=== PATIENT | female | born 1955 | race Caucasian/White ===

== ENCOUNTER 2017-11-10 06:29 | Day surgery (SDC) | payer BC ==
[~2017-11-10] VITALS: Ht 160 cm; Wt 81.2 kg
--- NOTE | ~2017-11-10 | OP ---
PATIENT NAME: BETZY SHIELDS MEDICAL RECORD: [id number] :51 LOCATION:D.OPS ADMISSION DATE: SURGEON: PRETTY ORR DPM DATE OF OPERATION: 11/10/2017 PREOPERATIVE DIAGNOSES: 1. Hallux abductovalgus, left foot. 2. Instability, left first metatarsal-cuneiform joint. POSTOPERATIVE DIAGNOSES: 1. Hallux abductovalgus, left foot. 2. Instability, left first metatarsal-cuneiform joint. PROCEDURES: 1. Dewitt bunionectomy, left foot. 2. First metatarsal-cuneiform joint fusion, left foot. ANESTHESIA: General with local infiltrate utilizing lidocaine and Marcaine plain, 18 cc total on the first ray of the left foot. HEMOSTASIS: Left thigh tourniquet at 350 mmHg. PREOPERATIVE DETAILS: PROCEDURE #1: The patient was taken to the OR, placed on the operating table in supine position. This was followed by induction of general anesthesia and infiltration of local anesthetic. The left extremity was then prepped and draped in usual aseptic technique followed by exsanguination of extremity and inflation of tourniquet. A 15-blade was used to create incision over dorsal aspect of the first ray extending to the base of the proximal phalanx of the hallux and after the medial cuneiform. The incision was deepened down through subcutaneous tissue to the first MPJ. An inverted L capsulotomy was performed. The medial capsular flap was reflected and the head of the first metatarsal was delivered. A sagittal saw was used to resect the medial eminence. Attention was then directed to the first interspace where a lateral release was performed. Good clinical reduction of the lateral contractures was verified. PROCEDURE #2: First metatarsal-cuneiform joint fusion. The incision as described in #1 was deepened down to the periosteum and the first metatarsal-cuneiform joint was delivered. A sagittal saw was used to resect the joint. Temporary fixation was placed and a 5-hole plate with one screw going across the fusion site was placed utilizing fluoroscopy to verify good placement. There was excellent rigid internal fixation noted as well as excellent alignment of the first ray. The wound was flushed. The deep tissue as well as the capsule was repaired with 2-0 Vicryl, the subcutaneous tissue with 4-0 Rapide and the skin was closed with 4-0 Rapide in a subcuticular technique followed by Dermabond. Adaptic, 4 x 4 and Conform were used to dress the wound followed by application of a modified Butler compression dressing. Tourniquet was deflated. POSTOPERATIVE DETAILS: The patient tolerated the procedure well and left the OR with vital signs stable and vascular status at preop levels. The patient was transported to recovery per anesthesia in stable condition. TRANSINT:[id number] Voice Confirmation ID: [id number] DOCUMENT ID: [id number] OPERATIVE REPORT [id number] BETZY SHIELDS MCKAY DPM CC: [id number] DICTATION DATE: 11/10/17 1147 ENGINEERING DRAFTER: 11/10/17 12[id number] [place] [address]
[~2017-11-10 06:29] MED LIST: ASPIRIN81 MG PO; BENADRYL25 MG PO; CYTOMEL50 MCG PO; FISH OIL 1,2001 CAP PO; PRILOSEC10 M1 PO; SYNTHROID100 MCG PO; TENORMIN50 MG PO; VITAMIN B COMPL1 TAB PO; VITAMIN D31000 UNIT PO
[2017-11-10 07:51] LABS: HEMATOCRIT 38.9 % (36.0-48.0); HEMOGLOBIN 13.2 g/dL (12-16)
[2017-11-10 07:54] VITALS: BP 144/65; Ht 160 cm; Wt 81.2 kg
== END 2017-11-10 13:15 | disposition home or self-care (01) ==
LOC: D.OPS 06:29 → D.PAN 09:00 → D.OPS 09:00
PROVIDERS: Podiatrist
DX: M20.12 Hallux valgus (acquired), left foot (principal); M25.375 Other instability, left foot; Z01.812 Encounter for preprocedural laboratory examination